=== PATIENT | female | born 1955 | race Caucasian/White ===

== ENCOUNTER 2018-11-21 19:41 | Inpatient (IN) ==
--- NOTE | 2018-11-21 22:12 | PROVIDER DOCUMENTATION ---
HPI-Rash/Wound/ReCheck - General Chief Complaint: Extremity Pain Stated Complaint: CELLULITIS Time Seen by Provider: 11/21/18 22:00 Source: patient - History of Present Illness-Dermatology Nature of Presenting Problem: 63 YOF PRESENTS WITH SWELLING, REDNESS, WARMTH TO BLE. SHE HAS RECENTLY TAKEN KEFLEX AND LEVAQUIN WITHOUT IMPROVEMENT. SHE DENIES FEVER, CHILLS, CP, SOB, N/V/D Location: reports: lower extremity Quality: reports: painful Severity: reports: moderate Onset/Duration: reports: unsure Timing: reports: still present Context/Associated Symptoms: reports: change in skin texture, swelling/mass/lumps Identifiable cause?: No Exposure: reports: unknown cause Similar Symptoms Previously?: Yes Recently seen or treated by another doctor?: Yes Review of Systems - Adult - REVIEW OF SYSTEMS - ADULT Constitutional: reports: no symptoms reported. denies: see HPI, chills, fever, fatique, night sweats, weight gain, weight loss, other Eyes: reports: no symptoms reported. denies: see HPI, discharge, dry eyes, decreased vision, blurred vision, double vision, eye pain, redness, other Ears, Nose, Mouth & Throat: reports: no symptoms reported. denies: see HPI, ear discharge, ear pain, hearing loss, tinnitus, epistaxis, sinus problem, nose pain, loose teeth, mouth/dental pain, mouth swelling, hoarseness, throat pain, throat swelling, other Cardiovascular: reports: edema. denies: no symptoms reported, see HPI, chest pain, heart murmur, irregular heart rate, orthopnea, palpitations, poor circulation, PND, syncope, other Respiratory: reports: other (CHRONIC HOME O2). denies: no symptoms reported, see HPI, chronic cough, cough, dyspnea on exertion, excessive sputum production, hemoptysis, pleurisy, shortness of breath, wheezing Gastrointestinal: reports: no symptoms reported. denies: see HPI, abdominal pain, hematemesis, constipation, diarrhea, difficulty swallowing, frequent heartburn, nausea, poor appetite, rectal bleeding, vomiting, other Genitourinary: reports: no symptoms reported. denies: see HPI, dysuria, discharge, frequency, flank pain, frequent UTI's, hematuria, hesitency, incontinence, urinary retention, urgency, other Musculoskeletal: reports: no symptoms reported. denies: see HPI, bone pain, back pain, frequent leg cramps, joint pain, joint swelling, muscle aches, muscle weakness, neck pain, other Integumentary: reports: skin sores/ulcer, skin thickening. denies: no symptoms reported, see HPI, hives, hair loss, itching, mole changes, nail changes, rash, other Neurological: reports: no symptoms reported. denies: see HPI, ataxia, dizziness /vertigo, headache/migraines, loss of balance, numbness, paresthesia, seizure, slurred speech, syncope, tremors, other Psychiatric: reports: no symptoms reported. denies: see HPI, anxiety, anti- depressant use, alcohol/drug dependence, depression, emotional problems, insomni a, panic attacks, suicidal thoughts, other Endocrine: reports: no symptoms reported. denies: see HPI, change in skin pigment, excessive sweating, goiter, cold intolerance, heat intolerance, increased hunger, increased thirst, polyuria, other Hematologic/Lymphatic: reports: no symptoms reported. denies: see HPI, blood clots, easy bruising, low blood count, lymphedema, prolonged bleeding, swollen lymph nodes, transfusions, other Allergic/Immunologic: reports: no symptoms reported. denies: see HPI, allergic reactions, allergic rhinitis, asthma, eczema, food allergy, frequent infections, hay fever, hives, positive PPD, urticaria, other Past History - Adult - PAST MEDICAL HISTORY-ADULT Review of Records: reports: Nursing Assessment Review, Social history reviewed & non-contributory. Physical Exam-General - PHYSICAL EXAM-ADULT Initial Vital Signs Reviewed: Yes - CONSTITUTIONAL General Appearance: appears well, alert, no apparent distress - EYES Eyes: PERRL/EOMI - HEAD, EARS, NOSE, MOUTH & THROAT HENMT: normocephalic/atraumatic, moist mucous membranes, normal ENT inspection - NECK Neck: non-tender, full range of motion, supple - RESPIRATORY Respiratory: chest non-tender, lungs clear, normal breath sounds, no pleuratic chest pain, no respiratory distress, no accessory muscle use, other (CHRONIC HOME O2) - CARDIOVASCULAR Cardiovascular: normal peripheral pulses, regular rate, rhythm. negative: no edema - GASTROINTESTINAL (ABDOMEN) Abdominal Exam: normal bowel sounds, non tender, soft - LYMPHATIC Lymphatic: no adenopathy - MUSCULOSKELETAL Back Exam: normal inspection, no CVA tenderness, no vertebral tenderness Extremity: inflammation, swelling, tenderness, other (REDNESS) Peripheral Pulses: dorsalis-pedis (R): 2+, dorsalis-pedis (L): 2+ - SKIN Integumentary: normal turgor, warm/dry, erythema, swelling, tenderness - NEUROLOGIC Neurologic: grossly normal - PSYCHIATRIC Psych/Mental Status: normal mood/affect, oriented x 3 Progress - PLAN OF CARE/RESULTS Progress/Plan/Lab Results: Vital Signs - 8 hr 11/21/18 19:46 Temperature 98.3 F Pulse Rate 65 Respiratory Rate 20 Blood Pressure 205/103 O2 Sat by Pulse Oximetry 87 L Orders Category Date Time Status CHEST-2 VIEWS [RAD] Stat Exams 11/21/18 22:07 Taken BASIC METABOLIC PANEL [CHEM] Stat Lab 11/21/18 22:06 Uncollected CBC WITH ELECTRONIC DIFF [HEME] Stat Lab 11/21/18 22:06 Uncollected PROTIME WITH INR [COAG] Stat Lab 11/21/18 22:06 Uncollected PTT [COAG] Stat Lab 11/21/18 22:06 Uncollected bnp [PRO B-NATRIURETIC PEPTIDE] Stat Lab 11/21/18 22:07 Uncollected Result Diagrams: 11/22/18 00:26 11/22/18 00:26 - CONSULTS/PCP/HOSPITALIST Notification #1 *Consult/PCP/Hospitalist*: Justin Time Discussed: 03:15 Consult Disposition: Will see in ED, Admit - CHANGE OF SHIFT REPORT (ED Provider) 1 Report Given and Care Transferred to:: DR MACEDO Time of Transfer: 23:58 Items Pending: Labs Departure - Departure Date of Disposition Decision: 11/22/18 Time of Disposition Decision: 02:15 DIAGNOSIS: Failure of outpatient treatment Lower extremity cellulitis Qualifiers: Laterality: unspecified laterality Qualified Code(s): L03.119 - Cellulitis of unspecified part of limb Disposition: ADMITTED INPATIENT 09 Certified Medical Emergency: Emergent Condition: Good Referrals and Follow-Ups: Neil Evans [Primary Care Provider] - - Critical Care Note This patient required my direct & personal management of CC.: No Attestation - Physician/ RBENT Attestation Patient care was provided by Advanced Practice Provider:: Yes Advanced Practice Provider documentation review:: The Mid-level provider documentation, treatment plan and medical decision making was reviewed by the physician who agrees with all treatment and medical decision making by the MLP. The physician spent face to face time with patient:: Yes Advanced Practice Provider documentation review:: Supervising physician onsite and consulted in the evaluation and care of this patient. The physician did have a face to face encounter with the patient.
[2018-11-22 00:53] LABS: BASO# 0.01 X1000 (0.0-0.2); BASO% 0.1 % (0.0-0.8); EOS# 0.14 X1000 (0.0-0.7); HEMATOCRIT 45.1 % (37.0-47.0); HEMOGLOBIN 14.3 g/dL (12.0-16.0); LYMPH# 1.43 X1000 (1.2-3.4); LYMPH% 20.3 % (20.5-51.1); MCH 30.2 PG (27-31); MCHC 31.7 g/dL (33-37); MCV 95.1 FL (81-99); MONO# 0.57 X1000 (0.11-0.59); MONO% 8.1 % (1.7-9.3); MPV 12.1 FL (7.4-10.4); NEUT# 4.88 X1000 (1.4-6.5); NEUT% 69.5 % (42.2-75.2); PLT 143 X1000 (130-400); RBC 4.74 XMIL (4.2-5.4); WBC 7.03 X1000 (4.8-10.8)
[2018-11-22 01:01] LABS: INR 1.07; PROTIME 14.8 Seconds (11.0-16.0)
[2018-11-22 01:02] LABS: PTT 28.1 Seconds (22.3-41.8)
[2018-11-22 01:19] LABS: AGAP 13; BUN 5 mg/dL (8-22); CALCIUM 9.1 mg/dL (8.8-10.2); CHLORIDE 91 mmol/L (98-107); COSMO 272; CREATININE 0.6 mg/dL (0.5-0.9); ESTIMATED GFR > 60; GLUCOSE 90 mg/dL (70-104); POTASSIUM 3.6 mmol/L (3.5-5.1); SODIUM 138 mmol/L (136-145); TCO2 34 mmol/L (25-35)
[2018-11-22] MEDS ORDERED: NORCO-5 PO ONE (02:11)
[2018-11-22] MEDS ORDERED: NORCO-5 ONE (02:15)
--- NOTE | 2018-11-22 07:24 | Diag Imaging Result Doc PS360 ---
EXAM: CHEST-2 VIEWS 11/21/2018 HISTORY: HYPOXIA TECHNIQUE: PA and lateral chest COMMENT: There is cardiomegaly and increased pulmonary vascularity. There is increased interstitial markings. IMPRESSION: Cardiomegaly and pulmonary edema. Electronically signed by Gildardo Montalvo 11/22/2018 7:21 AM
--- NOTE | 2018-11-22 07:49 | EKG Report ---
Test Performed on : 11/22/2018 07:32:10 AM Test Reason : SOB Blood Pressure : / mmHG Vent. Rate : 057 BPM Atrial Rate : 057 BPM P-R Int : 138 ms QRS Dur : 110 ms QT Int : 456 ms P-R-T Axes : 040 -81 035 degrees QTc Int : 443 ms Sinus bradycardia. with premature atrial complexes. with aberrant conduction. Left anterior fascicular block Cannot rule out Anterior infarct , age undetermined Abnormal ECG No previous ECGs available Confirmed by Unique PINTO, Shade Yap ([id number]) on 11/23/2018 11:59:37 AM
[2018-11-22 08:04] LABS: MAGNESIUM 1.5 mg/dL (1.5-2.7)
[2018-11-22 08:28] LABS: CK INDEX 2.4 (0.0-2.5); CK-MB 6.69 ng/mL (0.0-5.0)
[2018-11-22] MEDS ORDERED: ZOFRAN IV PRN (09:06)
[2018-11-22] MEDS ORDERED: TYLENOL PO PRN (09:08)
[2018-11-22] MEDS ORDERED: LOVENOX SUBQ SCH (09:15)
[2018-11-22] MEDS ORDERED: LASIX IV ONE (09:34)
[2018-11-22] MEDS ORDERED: LOPRESSOR PO SCH (09:45)
[2018-11-22] MEDS: DUONEB (A & A) INH SCH ×3 (09:54→21:15)
[2018-11-22] MEDS ORDERED: CLINDAMYCIN 600 MG/NS 600 MG/50 ML IVPB IV SCH (10:00)
[2018-11-22] MEDS ORDERED: CLINDAMYCIN 600 MG/D5W 600 MG/50 ML IVPB IV SCH (10:00)
[2018-11-22] MEDS ORDERED: NORCO-5 PO PRN ×2 (10:19→11:03)
[2018-11-22] MEDS: SYNTHROID PO SCH (10:29)
[2018-11-22] MEDS: CULTURELLE PO SCH (11:11)
--- NOTE | 2018-11-22 11:33 | HISTORY AND PHYSICAL ---
PRIMARY CARE PROVIDER: Neil Evans MD CHIEF COMPLAINT: Bilateral lower extremity pain and edema and shortness of breath. HISTORY OF PRESENT ILLNESS: Ms. Sullivan is a 63-year-old female with a past medical history most notable for COPD, hypertension, neuropathy, hypothyroidism, who has a history of having chronic lower extremity edema and cellulitis. I also would like to add that she does have COPD and does wear 2 L nasal cannula at home as needed. The patient states that she recently was given 2 different antibiotics for treatment of bilateral lower extremity cellulitis, with the last one being Keflex. She states that her legs have continued to have worsening swelling, warmth, erythema, pain, and tenderness. She does take Lasix 40 mg daily, which she states is for her swelling in her legs. Upon questioning, the patient denies any history of being told she has congestive heart failure. She states there might have been one time when she was in the hospital when she had a physician mention to her that she might have a little bit of heart failure going on, but the patient states since that time which was several years ago she has not had anyone tell her that she has the medical problem of heart failure. The patient does report to me that, when the swelling in her legs becomes worse, she does become short of breath as well. She states that these 2 symptoms coincided with each other in the past. She does report that she sleeps in a recliner at night as she is not able to lay flat to sleep. She does report dyspnea at rest and with exertion, which is worse at this time. She does report a chronic cough, but states this has not worsened. The patient has been a long-term smoker, though she denies any paroxysmal nocturnal dyspnea or any chest pain. Upon evaluation in the ER, the patient was not febrile. She did not report any fever, body aches, or chills, either. White blood cell count was within normal limits at 7030. Though her chemistry revealed a proBNP of 1850, she did have an elevated CK of 281, CK index was 2.4, CK-MB was 6.69, and troponin was less than 0.01. She was a little hypoxic upon arrival with an oxygen saturation of 87% room air, though this has improved with placing a nasal cannula with the last reading 92% nasal cannula at 2 L. Chest x-ray revealed cardiomegaly and pulmonary edema. She did have wheezing noted throughout bilateral full lung melissa and did have diminished lung sounds in the bases. EKG noted a sinus bradycardia with premature atrial complexes at a rate of 57. Given these findings, we will go ahead and admit the patient for further treatment and evaluation of her possible bilateral lower extremity cellulitis and possible new onset congestive heart failure. REVIEW OF SYSTEMS: A 14 point review of system was conducted with the patient and all were negative except for pertinent positives mentioned in the above HPI. PAST MEDICAL HISTORY: 1. Heart murmur. 2. COPD with home oxygen nasal cannula at 2 L as needed. 3. Hypertension. 4. Hypoglycemia. 5. Neuropathy. 6. Chronic problems with bilateral lower extremity swelling and cellulitis. 7. Hypothyroidism. PAST SURGICAL HISTORY: 1. Appendectomy. 2. Hysterectomy. 3. Bladder surgery x2. 4. Left hand surgery. SOCIAL HISTORY: The patient is a long-time smoker. She has smoked ever since she was 26 years old. She is currently down to half a pack of cigarettes per day. She denies any alcohol or illicit drug use social history. FAMILY HISTORY: 1. Her mother had a history of heart disease, though did from complications of a surgical procedure which, from the way the patient described it, may have been a cardiac catheterization. 2. Her father had a history of heart disease and from myocardial infarction. ALLERGIES: Patient reports allergies to: 1. Steroids. 2. Doxycycline. 3. Erythromycin Base. HOME MEDICATIONS: 1. ProAir HFA inhaler 2 puffs inhaled 4 times a day. 2. Furosemide 40 mg p.o. daily. 3. Gabapentin p.o. 4 times a day. 4. Ibuprofen 800 mg p.o. 4 times a day. 5. Combivent Respimat inhaler 1 puff inhaled t.i.d. 6. Levothyroxine 100 mcg p.o. daily. 7. Metoprolol 50 mg p.o. b.i.d. 8. Potassium chloride 20 mEq p.o. daily. DIAGNOSTIC STUDIES: White blood cell count 7030, hemoglobin 14.3, hematocrit 45.1, platelet count is 143. PTT 14.8, INR 1.07, PTT is 28.1. Sodium 138, potassium 3.6, chloride 90, serum bicarbonate is 34, BUN 5, creatinine 0.6, GFR greater than 60, glucose 92, calcium 9.1, magnesium 1.5. CK 281, CK index 2.4, CK-MB 6.69, troponin less than 0.01. ProBNP is 1850. EKG showed sinus bradycardia with PACs at a rate of 57 with a QTc of 443. Chest x-ray did show cardiomegaly and pulmonary edema. This is per Radiology. PHYSICAL EXAMINATION: VITAL SIGNS: Temperature 98 degrees, heart rate 65, respirations 18, blood pressure 160/68, oxygen saturation is 90% to 94% per nasal cannula at 2 L. GENERAL: Ms. Sullivan is a pleasant 63-year-old obese female. She was resting in the ER stretcher. She was in no acute distress. She was awake, alert, and able to answer questions appropriately. HEENT: Head is atraumatic, normocephalic. Pupils are equal, round, and reactive to light and were 3 mm bilaterally and brisk. Oral mucosa is moist. Oropharynx is clear. NECK: Supple. Trachea midline. The patient did have some slight JVD noted upon examination. CARDIOVASCULAR: Patient has S1, S2 present. There was a murmur noted. She does have irregular rhythm with a heart rate is in the 60s to 70s. PULMONARY: Patient has symmetrical chest expansion bilaterally. Lung sounds in bilateral full melissa did have wheezing noted, though she was diminished in the bilateral bases. ABDOMEN: Soft. Does not appear to be overtly distended, but the patient does have a protuberant abdomen noted. She was nontender upon palpation. Bowel sounds are present in all 4 quadrants and normoactive. EXTREMITIES: The patient does have swelling noted in bilateral lower extremities from her hips all the way down to her feet. In her lower extremities, this is approximately 3+ pitting edema. She does have erythema, warmth, pain, and tenderness noted to bilateral lower extremities from approximately knee down. She does have discoloration noted to bilateral feet. Her feet were warm to the touch. Capillary refill is delayed, though, at approximately 5 seconds, though she did have 2 to 3+ pulses in bilateral feet dorsalis pedis. She has bilateral radial pulses that are 3+ as well. INTEGUMENTARY: The patient's skin is pink, warm, and dry except for above-mentioned discoloration of the skin noted in the above Extremities exam. NEUROLOGICAL: The patient is alert and oriented to person, place, time, and situation. She is able to move all extremities. There do not appear to be any focal neurological deficits noted. ASSESSMENT AND PLAN: 1. Possible cellulitis of bilateral lower extremities. The patient is not febrile. She has no leukocytosis noted. She denies any fever, body aches, or chills, though she states that she does have frequent episodes of cellulitis of her bilateral lower extremities. She was recently on antibiotic with Keflex reportedly for this. Her bilateral lower extremities are, as mentioned, swollen, erythematous, hot to the touch. She does report pain and tenderness as well. We will continue with antibiotics of clindamycin 600 mg IV q.8 h. For further evaluation, we did also order venous Dopplers bilateral lower extremities as well to rule out any possible DVT. We will continue to follow. 2. Possible new onset congestive heart failure. The patient denies any previous history of heart failure in the past, though she has been having chronic swelling in her bilateral lower extremities, which she states when it worsens, she does have some worsening shortness of breath. She does have orthopnea. She sleeps in a recliner at night. Though she denies any paroxysmal nocturnal dyspnea or chest pain, she is having increased shortness of breath and is requiring continuous oxygen at this time. Given that she was hypoxic upon arrival with an oxygen saturation of 87%. A chest x-ray did show findings of cardiomegaly and pulmonary edema. Given this, we have ordered a series of cardiac enzymes and echocardiogram. We will give her a dose of IV Lasix 40 mg now, and we will continue her with 20 mg of IV Lasix q.12 h. to start this evening. We will await results of her echocardiogram and see how she responds to Lasix and await her cardiac enzyme results. We may consider a cardiology consult if needed. We will continue to follow this closely. She will be on continuous cardiac telemetry with frequent vital signs. 3. Hypertension. We will continue her metoprolol. We have put parameters on this for heart rate as well. 4. Chronic obstructive pulmonary disease. We will continue her supplemental oxygen by nasal cannula. We have ordered for her to have scheduled DuoNeb treatments q.6 h. 5. Hypothyroidism. We will continue her levothyroxine. We have placed a TSH as well. 6. Deep vein thrombosis prophylaxis will be provided with Lovenox 40 mg subcutaneously q.24 h. The patient placed was placed on the medical floor with telemetry. We will do daily weights, strict intake and output, incentive spirometry. She will be on a heart healthy diet. We will await cardiac enzymes as well as echocardiogram results and venous ultrasound results. Further orders and recommendations pending hospital course, diagnostics, [*]physician evaluation. Dictated by LINDSEY Baron for Enrike Anderson MD cc: Enrike Anderson MD
[2018-11-22 11:53] LABS: CK INDEX 2.6 (0.0-2.5); CK-MB 6.25 ng/mL (0.0-5.0)
[2018-11-22] MEDS: SEPTRA DS PO SCH ×2 (14:03→20:22)
[2018-11-22] MEDS: NEURONTIN PO SCH ×3 (14:03→20:22)
--- NOTE | 2018-11-22 16:01 | PROGRESS NOTE ---
DATE: 11/22/2018 SUBJECTIVE: Ms. Sullivan is a patient of Dr. Neil Evans. She is a 63-year-old female with a past medical history most notable for COPD, hypertension, neuropathy, hypothyroidism, had a history of having chronic lower extremity edema and cellulitis. She would like to add that she does have COPD and does wear 2 L of nasal cannula at home. She recently was given 2 different antibiotics to treat bilateral lower cellulitis with the last 1 being Keflex. Her legs have continued to have worsening swelling and warmth and erythema and pain and tenderness. She does take Lasix 40 mg a day for which she states is for her swelling in her legs. The patient denies any history of being told she has congestive heart failure. She states there might have been 1 time when she was in the hospital and her physician mentioned she had a little bit of heart failing going on, but the patient said that this episode was several years ago and has not had anyone tell her that she has a heart problem. The patient does report that when the swelling in her legs becomes worse she does become more short of breath. These symptoms coincide with each other. She reports she sleeps in a recliner at night, not able to lay flat. She reports she has dyspnea at rest and with exertion and it is worse at this time. On evaluation in the emergency room she was not febrile. Blood cell count was 7,000, though her chemistries were okay. ProBNP showed a level of 1,850, elevated CK of 281. Troponin was 0.01. She was a little hypoxic on arrival. Oxygen saturation was 87%, improved placing her on nasal cannula. Her last reading was 92% on 2 L. Her x-ray revealed cardiomegaly and pulmonary edema. She did have wheezing noted throughout bilateral full lung melissa and did have diminished lung sounds in the bases. EKG noted some sinus bradycardia, rate of 57. PAST MEDICAL HISTORY: 1. Heart murmur. 2. COPD, on oxygen, 2 L. 3. Hypertension. 4. Hypoglycemia. 5. Neuropathy. 6. Chronic problems with bilateral lower extremity swelling and cellulitis. 7. Hypothyroidism. PAST SURGICAL HISTORY: 1. Appendectomy. 2. Hysterectomy. 3. Bladder surgery x2. 4. Left hand surgery. ASSESSMENT AND PLAN: 1. She was admitted for possible cellulitis of bilateral lower extremities. She was not febrile. She does have pedal edema. There was no leukocytosis. She reports tenderness. They put her on clindamycin 600 mg IV q.8. She reports that she is allergic to mycins, so I am going to change her to Bactrim Double Strength 1 twice a day p.o. 2. Possible onset of congestive heart failure. I suspect she may have some cor pulmonale. I will to try and get an echocardiogram. We are going to diurese her with some Lasix and will probably give her 40 mg q.12. I think she was started on 20 mg q.12. We are going to attempt to get an echocardiogram. 3. Hypertension, which is controlled. Her blood pressures have been running a little bit high. We may have to adjust for her afterload. 4. Note, I am not sure she has true cellulitis. She is complaining a lot of pain and she is requesting IV pain medicine, opioid pain medicine. I am giving her some Maxatawny and I told her I do not want her to have too much pain medicine. She is getting Maxatawny 5 mg q.6 hours and she is not happy about this at all. She refused a venous study and so we have no venous study. I am going to stop her anticoagulant because she has some ecchymosis on her chest and her right breast where she said she fell and struck the commode. cc: Shade Calhoun MD
[2018-11-22 17:46] LABS: CK INDEX 2.5 (0.0-2.5); CK-MB 6.15 ng/mL (0.0-5.0)
[2018-11-22] MEDS: LASIX IV SCH (20:23)
[2018-11-22] MEDS: LOPRESSOR PO SCH (20:39)
[2018-11-22] MEDS ORDERED: LASIX IV SCH (21:00)
--- NOTE | 2018-11-22 23:41 | ECHO REPORT ---
ORDER DATE: 11/22/2018 MEASUREMENTS: Left atrium 4.8. Aortic root 3.1. SUMMARY: 1. Technically difficult study due to limited acoustic window quality. 2. Aortic valve not well imaged, but appears without evidence of structural abnormality and appears to open adequately on 2-dimensional images. Peak gradient across aortic valve is 20 mmHg with a mean gradient of 11 mmHg. Calculated aortic valve area by Doppler is 1.6 cm2. Very mild aortic valve stenosis suggested. Mitral and tricuspid valves are without evidence of structural abnormality while pulmonic valve is not well demonstrated. There is trace mitral regurgitation. Aortic root is normal in size. 3. Normal left ventricular chamber size with mild concentric left hypertrophy is demonstrated. Estimated left ejection fraction appears to be at least 65%. No regional wall motion abnormalities are evident. Left atrium is moderately enlarged. The right atrium and right ventricle are normal in size with grossly preserved right ventricular systolic function. 4. No pericardial effusion. 5. Inferior vena cava not well demonstrated. CONCLUSIONS: 1. Technically difficult study. 2. Aortic valve not well imaged, but Doppler suggests very mild aortic valve stenosis. 3. Mild concentric left hypertrophy with estimated ejection fraction at least 65%. 4. Moderate left atrial enlargement. cc: Mahendra William MD
[2018-11-23 02:25] LABS: CK INDEX 2.8 (0.0-2.5); CK-MB 5.77 ng/mL (0.0-5.0)
[2018-11-23] MEDS: DUONEB (A & A) INH SCH ×4 (03:27→21:30)
[2018-11-23] MEDS: SYNTHROID PO SCH (06:05)
[2018-11-23 08:07] LABS: EOS# 0.19 X1000 (0.0-0.7); HEMATOCRIT 42.9 % (37.0-47.0); HEMOGLOBIN 13.3 g/dL (12.0-16.0); LYMPH# 1.62 X1000 (1.2-3.4); LYMPH% 25.4 % (20.5-51.1); MCH 29.2 PG (27-31); MCV 94.3 FL (81-99); MONO# 0.57 X1000 (0.11-0.59); MONO% 8.9 % (1.7-9.3); MPV 11.3 FL (7.4-10.4); NEUT% 62.7 % (42.2-75.2); PLT 135 X1000 (130-400); RBC 4.55 XMIL (4.2-5.4); RDW 14.9 % (11.5-14.5); WBC 6.38 X1000 (4.8-10.8)
[2018-11-23 08:22] LABS: AGAP 11; ALB/GLOB RATIO 1.2; ALBUMIN 3.6 g/dL (3.5-5.0); ALKALINE PHOSPHATASE 61 U/L (32-104); BUN 8 mg/dL (8-22); CALCIUM 8.2 mg/dL (8.8-10.2); CHLORIDE 86 mmol/L (98-107); COSMO 267; CREATININE 0.7 mg/dL (0.5-0.9); ESTIMATED GFR > 60; GLUCOSE 104 mg/dL (70-104); GOT 21 U/L (10-30); GPT 12 U/L (10-36); POTASSIUM 2.8 mmol/L (3.5-5.1); SODIUM 134 mmol/L (136-145); TCO2 37 mmol/L (25-35); TOTAL BILIRUBIN 0.73 mg/dL (0.20-1.00); TOTAL PROTEIN 6.7 g/dL (6.3-8.3)
[2018-11-23] MEDS: CULTURELLE PO SCH (09:29)
[2018-11-23] MEDS: NEURONTIN PO SCH ×4 (09:29→21:25)
[2018-11-23] MEDS: SEPTRA DS PO SCH ×2 (09:29→21:27)
[2018-11-23] MEDS: LOPRESSOR PO SCH ×2 (09:29→21:26)
[2018-11-23] MEDS: LASIX IV SCH ×2 (09:30→21:25)
[2018-11-23] MEDS ORDERED: VENTOLIN HFA INH SCH (21:00)
--- NOTE | 2018-11-23 21:26 | PROGRESS NOTE ---
DATE: 11/23/2018 SUBJECTIVE: Ms. Sullivan feels like her feet are a little less swollen. She did have a little more wheezing so she requested her nebulized treatment. She remains afebrile. She has a lot of bruising on the right breast. It looks consistent with trauma and hematoma. OBJECTIVE: Vital signs: Temperature 98.3 degrees, pulse 62, respirations 17, blood pressure 138/56. HEENT: Pupils are equal. Neck: No distended neck veins. Lungs: Clear in all lung melissa at the present time. No wheezing. Cardiovascular: Regular rate without murmur or S3. Abdomen: Soft. Skin: Warm and dry. Extremities: She has 1+ edema in her ankles to calle. ASSESSMENT AND PLAN: 1. I think the redness and erythema in the lower extremities is much better, and her swelling is down. We are going to continue the Bactrim Double Strength p.o. 2. She appears to have chronic venous insufficiency and possible onset of congestive heart failure. We have located the echocardiogram with Doppler that was done and appeared to have concentric left ventricular hypertrophy, estimated ejection fraction of 65%, so she does not appear to have systolic dysfunction. She got 1 dose of Lasix, and she is getting 40 mg IV of Lasix twice a day. We will watch her renal function closely. Creatinine was 0.7 today. cc: Shade Calhoun MD
[2018-11-23] MEDS: KLOR-CON PO SCH (21:27)
[2018-11-24] MEDS: DUONEB (A & A) INH SCH ×4 (04:30→23:36)
[2018-11-24] MEDS: SYNTHROID PO SCH (06:38)
[2018-11-24 07:42] LABS: ESTIMATED GFR > 60
[2018-11-24 07:47] LABS: AGAP 12; BUN 9 mg/dL (8-22); CALCIUM 8.4 mg/dL (8.8-10.2); CHLORIDE 86 mmol/L (98-107); COSMO 269; CREATININE 0.8 mg/dL (0.5-0.9); GLUCOSE 105 mg/dL (70-104); POTASSIUM 2.9 mmol/L (3.5-5.1); SODIUM 135 mmol/L (136-145); TCO2 37 mmol/L (25-35)
[2018-11-24] MEDS: DUONEB (A & A) INH PRN ×2 (08:00→19:27)
[2018-11-24] MEDS: KLOR-CON PO SCH ×2 (08:27→22:05)
[2018-11-24] MEDS: SEPTRA DS PO SCH ×2 (08:28→22:05)
[2018-11-24] MEDS: LOPRESSOR PO SCH ×2 (08:28→22:00)
[2018-11-24] MEDS: CULTURELLE PO SCH (08:28)
[2018-11-24] MEDS: LASIX IV SCH ×2 (08:28→22:05)
[2018-11-24] MEDS: NEURONTIN PO SCH ×4 (08:28→22:04)
[2018-11-24] MEDS ORDERED: COMBIVENT RESPIMAT INHALER INH SCH (09:00)
--- NOTE | 2018-11-24 11:13 | PROGRESS NOTE ---
DATE: 11/24/2018 SUBJECTIVE: Ms. Sullivan is feeling better. She feels like her legs are less tense and they are less irritated and red. She still has a good amount of lymphedema throughout both legs. She remains afebrile. OBJECTIVE: Vital signs: Temperature 97.9 degrees, pulse 57, respirations 22. CVP less appears to be less than 6 cm. Lungs: Clear in all lung melissa. Cardiovascular: Regular rhythm and rate without murmur or S3. Abdomen: Soft. Skin: Warm and dry. ASSESSMENT AND PLAN: 1. Redness and erythema in lower extremities, much better. Does not appear she has an active infection. I am going to continue the Bactrim Double Strength 1 twice a day. 2. Chronic venous insufficiency. The Doppler has shown left ventricular hypertrophy, ejection fraction 65%, so suspects she has diastolic dysfunction. Continue the Lasix. 3. I really would like her to get the venous study and make sure there is no DVT in either leg, her left leg in particular. She refused to get it last time, so I think I will go up on her pain medicine. She is still very uncomfortable in that left leg, and see if that will help some. Otherwise, continue current medication. 4. History of hypothyroidism. Appears to be euthyroid. She is on Lopressor 50 mg b.i.d. We will continue Lasix 40 mg IV q.12, the Neurontin 800 mg 4 times a day. cc: Shade Calhoun MD
[2018-11-25] MEDS: NORCO-10 PO PRN ×3 (00:27→13:55)
[2018-11-25] MEDS: DUONEB (A & A) INH SCH ×3 (03:45→15:00)
[2018-11-25] MEDS: SYNTHROID PO SCH (06:29)
[2018-11-25] MEDS: NEURONTIN PO SCH ×3 (08:38→17:31)
[2018-11-25] MEDS: CULTURELLE PO SCH (08:38)
[2018-11-25] MEDS: SEPTRA DS PO SCH (08:38)
[2018-11-25] MEDS: KLOR-CON PO SCH (08:38)
[2018-11-25] MEDS: LOPRESSOR PO SCH (08:38)
[2018-11-25] MEDS: LASIX IV SCH (08:38)
[2018-11-25 13:17] VITALS: BP 147/67
--- NOTE | 2018-11-25 13:24 | PROGRESS NOTE ---
DATE: 11/25/2018 SUBJECTIVE: She is doing better, but her leg does not hurt as bad as it did. The swelling has definitely gone down. Breathing comfortably, but not ready to go home. She still has not agreed to let us do a venous Doppler study. I would really like to make sure she does not have a DVT and especially in that left leg. OBJECTIVE: Temperature 98.9 degrees, pulse 70, respirations 18, blood pressure 145/67. Pupils are equal and round. Lungs are clear in all lung melissa. Cardiovascular: Regular rhythm and rate without murmur or S3. She has got pedal edema both legs. The left seems to be a little bigger than the right with lymphedema. ASSESSMENT AND PLAN: 1. Redness and erythema, lower extremities. Presented with some cellulitis and that is better. She is on Bactrim Double Strength 1 twice a day. 2. Chronic venous insufficiency. She has a normal left ventricular function and I suspect diastolic dysfunction, a combination of obesity and chronic venous insufficiency. 3. Would like to get a venous study. She says maybe she will agree to it tomorrow. Has agreed to stay in the hospital. Continue present therapy. 4. History of hypothyroidism. Appears euthyroid at the present time. 5. Obesity and chronic venous insufficiency. Right now we are getting Lasix 40 mg q.12 h. Her blood count, CBC from the 7th looked good. Electrolytes look good from the 8th. cc: MD GAL Chaves
--- NOTE | 2018-11-25 19:56 | DISCHARGE SUMMARY ---
ADMISSION DATE: 11/22/2018 DISCHARGE DATE: 11/25/2018 HISTORY OF PRESENT ILLNESS: Ms. Sullivan is a patient of Dr. Ty Evans. This is a 63-year-old who came in with bilateral lower extremity pain, edema and shortness of breath. Has a past medical history notable for COPD, hypertension, neuropathy, hypothyroidism, history of having chronic lower extremity edema and cellulitis and she does have COPD. She is on 2 L nasal cannula at home, chronic hypoxemia, recently given 2 different antibiotics for bilateral lower extremity cellulitis including Keflex. Continued to have worsening swelling and erythema and tenderness, especially in her left calf. She takes Lasix 40 mg a day for swelling in the legs. The patient denies any history of being told she had congestive heart failure. There might have been a time when she was in the hospital and the physician may have mentioned heart failure, but she has not known about it. When I look at her echocardiogram, she has good left ventricular function. In fact, ejection fraction is 80%, so hyperdynamic ventricle. Suspect some diastolic dysfunction. PAST MEDICAL HISTORY: 1. Heart murmur. 2. COPD on oxygen per nasal cannula 2 L/minute. 3. Hypertension. 4. Hypoglycemia. 5. Neuropathy. 6. Chronic problems with lower extremity swelling and cellulitis. 7. Hypothyroidism. PAST SURGICAL HISTORY: 1. Appendectomy. 2. Hysterectomy. 3. Bladder surgery x2. 4. Left hand surgery. ADMISSION DIAGNOSIS: 1. Possible cellulitis bilateral lower extremities. Looked more like lymphedema. She did have some bullae and chronic venous stasis discoloration, pigmentation on both lower extremities and so we did put her on clindamycin, but she said she is allergic to mycins. I would switch her to p.o. Bactrim double strength 1 twice a day. The erythema seemed to resolve. We did increase the diuresis. 2. She has chronic venous insufficiency compound by obesity and hyperdynamic ventricle or diastolic dysfunction. We did diurese her some. Renal function stayed pretty steady. 3. Hypertension. Blood pressures remained well controlled. 4. Chronic obstructive pulmonary disease and she is on oxygen. Chronic hypoxemia. 5. Hypothyroidism. We checked her T4, TSH, and they were normal. 6. We had her on thrombosis prophylaxis. She had fallen and she had a hematoma in her right breast. She refused anticoagulation and she refused to get venous studies on her legs. I tried multiple times to get to make sure she did have a deep vein thrombosis. Her swelling did improve and she complained of the pain. She stated the pain is improved and she insisted on going home on 11/25/2018. Once again, tried to talk her into getting noninvasive studies. I was concerned about possibility of deep vein thrombosis in her legs and she refused any further studies. Echocardiogram was done on 11/22, technically difficult study: Mild concentric left ventricular hypertrophy. Ejection fraction at this time was 65%. Moderate left atrial enlargement. DISPOSITION: So, I am going to discharge her home at her insistence and I will go back on her home medications. HOME MEDICATIONS: She was taking Lasix 40 mg a day. She is taking the gabapentin 800 mg 4 times a day. She is taking ibuprofen 4 times a day. I encouraged her to decrease that, if not stop it. She is on a Respimat inhaler, Synthroid 100 mcg daily, Lopressor 50 mg twice a day, and her Lasix 20 mg a day. She wanted me to give her some pain medicine to go home the 1st 24 hours in particular, she was very insistent that she could get her pain medicine, but I will stop the Bactrim Double Strength. In regards to pain medicine, she was getting [place] 10s. I will give her 20 of them. She is to follow up with her primary care physician. I want her to elevate her feet. We had discussions about treatment of chronic venous insufficiency. The importance of weight loss, importance of elevating her feet, stockings and once again tried to convince her to get a venous study to make sure there was not any venous thrombosis, which she refused. I expect the hematoma in the right breast should resolve. It continues to look a little better. cc: Shade Calhoun MD
== END 2018-11-25 20:13 | disposition home or self-care (01) | DRG 603 ==
LOC: ED 19:41 → 3N 11-22 06:18 → SUATTDRO 11-22 06:18
PROVIDERS: ATTEND Emergency Medicine
CPT/HCPCS: 71020; 71046; 80048; 80053; 82550; 82553; 83735; 83880; 84443; 84484; 85025; 85610; 85730; 93005; 93010; 93306; 93970; 94640; 94761; 94799; 99285; A9270; J1940; S0077

== ENCOUNTER 2018-11-30 21:54 | Inpatient (IN) ==
[2018-11-30] MEDS ORDERED: DILAUDID IV ONE (22:51)
[2018-11-30] MEDS ORDERED: ZOFRAN IV ONE (23:00)
[2018-12-01 00:39] LABS: BASO# 0.01 X1000 (0.0-0.2); BASO% 0.1 % (0.0-0.8); EOS# 0.04 X1000 (0.0-0.7); EOS% 0.4 % (0.0-10.0); HEMATOCRIT 44.1 % (37.0-47.0); HEMOGLOBIN 13.9 g/dL (12.0-16.0); LYMPH# 0.81 X1000 (1.2-3.4); LYMPH% 8.5 % (20.5-51.1); MCHC 31.5 g/dL (33-37); MONO# 0.68 X1000 (0.11-0.59); MONO% 7.2 % (1.7-9.3); MPV 12.6 FL (7.4-10.4); NEUT# 7.95 X1000 (1.4-6.5); NEUT% 83.8 % (42.2-75.2); PLT 135 X1000 (130-400); RBC 4.64 XMIL (4.2-5.4); RDW 14.6 % (11.5-14.5); WBC 9.49 X1000 (4.8-10.8)
[2018-12-01 00:40] LABS: INR 1.01; PROTIME 14.1 Seconds (11.0-16.0); PTT 28.9 Seconds (22.3-41.8)
[2018-12-01] MEDS ORDERED: DUONEB (A & A) INH ONE (00:47)
[2018-12-01 00:53] LABS: AGAP 8; BUN 8 mg/dL (8-22); CALCIUM 8.6 mg/dL (8.8-10.2); CHLORIDE 96 mmol/L (98-107); COSMO 277; CREATININE 0.6 mg/dL (0.5-0.9); ESTIMATED GFR > 60; GLUCOSE 153 mg/dL (70-104); POTASSIUM 4.3 mmol/L (3.5-5.1); SODIUM 138 mmol/L (136-145); TCO2 34 mmol/L (25-35)
--- NOTE | 2018-12-01 02:46 | PROVIDER DOCUMENTATION ---
This chart was entered by Argentina Pathak Scribe, acting as scribe for Pramod Delgado MD. HPI-Musculoskeletal Pain/Inj - GENERAL Chief Complaint: Extremity Injury Stated Complaint: fall Time Seen by Provider: 11/30/18 22:13 Source: patient - HX OF PRESENT ILLNESS-MUSKULOSKELTAL Nature of Presenting Problem: Pt is 63/F presenting to ED after falling on L knee at home. Pt sts that the kn ee popped and that she cannot put any weight on that leg at all. Pt has hx of cellulitus to that leg. Quality of Pain: reports: aching Severity in ED: mild Onset/Duration: just prior to arrival Timing: still present Modifying Factors: improves with: nothing Any recent injury?: Yes Locality of Occurance: Home Similar Symptoms Previously?: No Recently seen or treated by another doctor?: No - FALL INJURY Location of Pain/Injury: reports: lower extremity (L knee) Pain Radiation: reports: no radiation Reason for Fall: reports: unknown Symptoms prior to fall:: reports: none Loss of Consciousness: no loss of consciousness Injury Associated Symptoms: reports: denies symptoms, arm pain, back/neck pain Review of Systems - Adult - REVIEW OF SYSTEMS - ADULT Constitutional: reports: no symptoms reported. denies: chills, fever Eyes: reports: no symptoms reported Ears, Nose, Mouth & Throat: reports: no symptoms reported Cardiovascular: reports: no symptoms reported. denies: chest pain Respiratory: reports: no symptoms reported Gastrointestinal: reports: no symptoms reported. denies: abdominal pain, nausea, vomiting Genitourinary: reports: no symptoms reported Musculoskeletal: reports: no symptoms reported. denies: bone pain Integumentary: reports: no symptoms reported Neurological: reports: no symptoms reported. denies: dizziness/vertigo, headache/migraines Psychiatric: reports: no symptoms reported Endocrine: reports: no symptoms reported Hematologic/Lymphatic: reports: no symptoms reported Allergic/Immunologic: reports: no symptoms reported All Other Systems: Reviewed and Negative Past History - Adult - PAST MEDICAL HISTORY-ADULT Review of Records: reports: Old Records Reviewed, Nursing Assessment Review, Medications Reviewed, Social history reviewed & non-contributory. Cardiovascular: reports: HTN Respiratory: reports: COPD Genitourinary: reports: denies history Musculoskeletal: reports: denies history Neurological: reports: denies history Psychiatric: reports: denies history Endocrine/Immune: reports: denies history Other Conditions: reports: denies history - SOCIAL HISTORY Smoking: cigarettes Provider spent 3-5 mins advising pt. on dangers of tobacco.: Discussed manners to quit use, and f/u contacts for add'l counseling. Substance Use: none/never Alcohol Use Frequency: sober (former use) Living Situation: family Physical Exam-Injury Related - Physical Exam-Injury Related Initial Vital Signs Reviewed: Yes General Appearance: appears well, alert, no apparent distress, obese (morbidly obese) Eyes: PERRL/EOMI, pink conjunctivae Head, Ears, Nose, Mouth & Throat: normocephalic/atraumatic, moist mucous membranes, normal ENT inspection, TMs normal, pharynx normal Neck: non-tender, full range of motion, supple, normal inspection Respiratory: lungs clear Cardiovascular: regular rate, rhythm Abdominal Exam: normal bowel sounds, non tender, soft Extremity: normal range of motion, non-tender, normal gait, normal inspection Integumentary: normal color, warm/dry Neurologic: grossly normal - Glascow Coma Score Best Eye Response ([place]): (4) open spontaneously Best Verbal Response ([place]): (5) oriented Best Motor Response ([place]): (6) obeys commands [place]agan Total: 15 Progress - PLAN OF CARE/RESULTS Progress/Plan/Lab Results: Vital Signs - 8 hr 11/30/18 22:21 11/30/18 22:26 11/30/18 22:32 Temperature 98.7 F Pulse Rate 69 Respiratory Rate 20 Blood Pressure 186/65 186/65 168/98 O2 Sat by Pulse Oximetry 93 L 92 L 93 L 11/30/18 23:00 11/30/18 23:03 11/30/18 23:32 Temperature Pulse Rate Respiratory Rate Blood Pressure 172/52 170/67 O2 Sat by Pulse Oximetry 97 96 92 L 12/01/18 00:02 12/01/18 00:32 12/01/18 01:02 Temperature Pulse Rate Respiratory Rate Blood Pressure 167/76 190/72 136/54 O2 Sat by Pulse Oximetry 94 L 95 99 12/01/18 01:05 12/01/18 01:32 Temperature Pulse Rate 80 Respiratory Rate 16 Blood Pressure 164/60 O2 Sat by Pulse Oximetry 97 Laboratory Results - last 24 hr 06/11/30/18 11/30/18 23:15 23:15 23:15 WBC 9.49 RBC 4.64 Hgb 13.9 Hct 44.1 MCV 95.0 MCH 30.0 MCHC 31.5 L RDW Std Deviation 14.6 H Plt Count 135 MPV 12.6 H Neut % (Auto) 83.8 H Lymph % (Auto) 8.5 L [place] % (Auto) 7.2 Eos % (Auto) 0.4 Baso % (Auto) 0.1 Neut # (Auto) 7.95 H Lymph # (Auto) 0.81 L [place] # (Auto) 0.68 H Eos # (Auto) 0.04 Baso # (Auto) 0.01 PT 14.1 INR 1.01 PTT (Actin FS) 28.9 Sodium 138 Potassium 4.3 Chloride 96 L Carbon Dioxide 34 Anion Gap 8 BUN 8 Creatinine 0.6 Estimated GFR/1.73 m2 > 60 BUN/Creatinine Ratio 13 Glucose 153 H Calculated Osmolality 277 Calcium 8.6 L Orders Category Date Time Status Nursing- Obtain EKG once Care 11/30/18 23:01 Active CHEST-PORTABLE [RAD] Stat Exams 12/01/18 00:48 Taken KNEE 3 VIEWS LEFT [RAD] Stat Exams 11/30/18 22:19 Taken BMP [BASIC METABOLIC PANEL] [CHEM] Stat Lab 11/30/18 23:15 Completed CBC WITH ELECTRONIC DIFF [HEME] Stat Lab 11/30/18 23:15 Completed PROTIME WITH INR [COAG] Stat Lab 11/30/18 23:15 Completed PTT [COAG] Stat Lab 11/30/18 23:15 Completed Albuterol 2.5MG/Ipratrop 0.5MG [Duoneb (A & A)] Med 12/01/18 00:47 Discontinued 3 ml INH NOW ONE Hydromorphone [Dilaudid] Med 11/30/18 22:51 Discontinued 0.5 mg IV NOW ONE Ondansetron [Zofran] Med 11/30/18 23:00 Discontinued 4 mg IV NOW ONE Aerosol Treatments Routine Oth 12/01/18 00:47 Completed Aerosol Treatments Stat Oth 12/01/18 00:47 Completed Transfer/Admit Order [TRANSFER] Routine Transfer 12/01/18 00:58 Ordered Result Diagrams: 11/30/18 23:15 11/30/18 23:15 - CONSULTS/PCP/HOSPITALIST Notification #1 *Consult/PCP/Hospitalist*: [place] Time Discussed: 23:05 Consult Disposition: other (will review X=ray and call back) #2 Consult: Justin Time Discussed: 23:15 (pt accepted ) Consult Disposition: Admit Departure - Departure Date of Disposition Decision: 12/01/18 Time of Disposition Decision: 00:00 DIAGNOSIS: Femoral distal fracture Disposition: ADMITTED INPATIENT 09 Certified Medical Emergency: Emergent Condition: Serious - Critical Care Note This patient required my direct & personal management of CC.: No Attestation - Physician/ BRENT Attestation Patient care was provided by Advanced Practice Provider:: No The physician spent face to face time with patient:: Yes Advanced Practice Provider documentation review:: Supervising physician onsite and consulted in the evaluation and care of this patient. The physician did have a face to face encounter with the patient. This chart was documented by the indicated scribe, (Argentina Pathak, Scribe) and accurately reflects the services I performed and decisions made by me, Pramod Sharp MD, as attested by the provider's signature.
[2018-12-01] MEDS: DILAUDID IV PRN ×4 (02:58→12:30)
[2018-12-01] MEDS ORDERED: DILAUDID ONE (02:58)
[2018-12-01] MEDS ORDERED: TYLENOL PO PRN (04:05)
[2018-12-01] MEDS ORDERED: ZOFRAN IV PRN (04:05)
[2018-12-01] MEDS ORDERED: SYNTHROID PO SCH (07:00)
--- NOTE | 2018-12-01 07:39 | Diag Imaging Result Doc PS360 ---
EXAM: KNEE 3 VIEWS LEFT HISTORY: pain TECHNIQUE: Left knee, three views COMPARISON: None. FINDINGS: There is an oblique fracture through the distal femoral shaft extending through the femoral condyles. Mild displacement. There are long-standing arthritic changes with joint space narrowing and bone spurring. No fracture to the proximal tibia or fibula. IMPRESSION: Fractures to the distal femur. Electronically signed by Jp Goncalves 12/01/2018 7:37 AM
[2018-12-01] MEDS: DUONEB (A & A) INH SCH ×2 (07:41→11:35)
--- NOTE | 2018-12-01 07:44 | Diag Imaging Result Doc PS360 ---
EXAM: CHEST-PORTABLE HISTORY: dyspnea TECHNIQUE: Chest single view COMPARISON: 11/21/2018 FINDINGS: Poor inspiratory effort. The heart is mildly prominent and there is pulmonary edema. No consolidation. No pleural effusions identified. IMPRESSION: Cardiomegaly with pulmonary edema. Electronically signed by Jp Goncalves 12/01/2018 7:41 AM
--- NOTE | 2018-12-01 07:53 | Diag Imaging Result Doc PS360 ---
EXAM: KNEE 3 VIEWS RIGHT HISTORY: Right Knee Pain/Injury/Fall TECHNIQUE: Right knee, three views COMPARISON: None. FINDINGS: No fracture. No dislocation. Medial joint space narrowing. There is bone spurring to the femoral condyles and tibial plateau. There is also patellofemoral joint space narrowing with patella bone spurs. IMPRESSION: No acute bony injury. Long-standing arthritis. Electronically signed by Jp Goncalves 12/01/2018 7:51 AM
--- NOTE | 2018-12-01 08:29 | ORTHOPAEDICS CONSULTATION ---
DATE: 12/01/2018 HISTORY OF PRESENT ILLNESS: Patient is a 63-year-old female status post fall at home yesterday evening. She felt a pop and was unable to bear weight. She denies loss of conscious. The patient has been recently discharged from the hospital mom with bilateral lower extremity pain, edema and shortness of breath. She was in the emergency room, and x-rays revealed a right distal femur fracture. She was admitted to the hospital, and orthopedic consultation was requested. HOME MEDICATIONS: Reviewed and contained within the chart. ALLERGIES: Steroids, doxycycline, erythromycin. PAST MEDICAL HISTORY: COPD with home oxygen, hypertension, heart murmur, hypoglycemia, neuropathy, chronic problems with bilateral extremity swelling and cellulitis, hypothyroidism. PAST SURGICAL HISTORY: Appendectomy, hysterectomy, bladder surgery x2, left hand surgery. PHYSICAL EXAMINATION: Patient is awake, alert, and cooperative with exam. Her left lower extremity knee immobilizer is in place. She does have diffuse swelling about the knee, diffuse tenderness to palpation. Compartments are soft. She does have some chronic skin discoloration from mid tibia and distally bilaterally. There is no increased warmth or erythema. There is no evidence of streaking proximally. Significant pain and discomfort with gentle movement. IMAGING: X-rays were obtained and revealed a right displaced medial femoral condyle fracture with extension proximally on the distal femur and some longstanding arthritis. IMPRESSION: Right distal femur fracture. PLAN: At this point, I have discussed treatment options with the patient. After reviewing the films and discussing with the patient, I feel that the patient would benefit from transfer to [facility] to have definitive surgical management per Dr. Hobbs who is a traumatologist. I have discussed with him. We will make arrangements for transfer. cc: Kodi Harmon MD
[2018-12-01] MEDS ORDERED: LASIX PO SCH (09:00)
[2018-12-01] MEDS ORDERED: LOPRESSOR PO SCH (09:00)
[2018-12-01] MEDS ORDERED: LASIX IV ONE (09:56)
[2018-12-01] MEDS: NEURONTIN PO SCH ×2 (10:00→13:07)
[2018-12-01 11:22] VITALS: BP 177/58
--- NOTE | 2018-12-01 11:41 | HISTORY AND PHYSICAL ---
PRIMARY CARE PROVIDER: Neil Evans MD. DATE AND TIME: 12/01/2018 at 0130. CHIEF COMPLAINT: Fall with left knee pain. HISTORY OF PRESENT ILLNESS: Ms. Sullivan is a 63-year-old female who was just recently discharged from our facility on 11/25/2018 for which she underwent treatment of possible cellulitis and chronic bilateral lower extremity swelling. She did receive antibiotic of Bactrim, they also did diurese her some as well. It was noted as well they did want to perform venous Dopplers of bilateral lower extremities for further evaluation of her swelling to rule out possible DVT though the patient did refuse this study even after being explained the reason for the study and its importance. The patient's swelling did improve with diuresis as well as she reports improved pain. She ultimately refused the bilateral venous Doppler studies and did want to be discharged home. Prior to presenting to the ER, the patient states that she was going up a step and she stepping up with her right leg and had most of her weight resting on her left leg as it was straightened out, though she states her left leg gave way causing her to fall hitting her left knee and right knee. The patient reports pain in both knees though most of her pain is in the left knee and she was unable to bear weight, and does have pain with movement of her left lower extremity. The patient denies any other injuries during her fall other than the pain noted in bilateral knees. She denied hitting her head. She denied any loss of consciousness. Also she states that simply felt her leg give way. She denied any dizziness, lightheadedness, chest pain, shortness of breath or weakness prior to her fall. In the ER they did perform x-rays of right and left knee. Her left knee did show an oblique fracture through the distal femoral shaft extending through the femoral condyles, there was some mild displacement noted. Right knee showed no acute injury, there was some longstanding arthritis noted. Dr. Harmon with Orthopedic Surgery was notified by the ER physician of the patient, and a consult will be placed for him to see her in the morning. We have placed a left knee immobilizer on the patient at this time. Other than her pain as reported above in bilateral knees she denies any headache, dizziness, lightheadedness, chest pain, shortness of breath or worsening cough. The patient is a smoker and does keep a chronic cough. She denies any abdominal pain, nausea, vomiting or diarrhea. She denies any hematochezia or melena. She denies any dysuria or urinary frequency. She does have chronic swelling noted to bilateral lower extremities. She states that this is somewhat better than it was during her most recent admission. REVIEW OF SYSTEMS: A 14-point review of systems was conducted with the patient and all were negative except for pertinent positives mentioned in the above HPI. PAST MEDICAL HISTORY: 1. Heart murmur. 2. COPD on home oxygen per nasal cannula at 2 L. 3. Hypertension. 4. Hypoglycemia. 5. Neuropathy. 6. Chronic problems with lower extremity swelling and cellulitis. 7. Hypothyroidism. PAST SURGICAL HISTORY: 1. Appendectomy. 2. Hysterectomy. 3. Bladder surgery x2. 4. Left hand surgery. SOCIAL HISTORY: The patient is a long-time smoker. She has smoked since she was 26 years old. She currently smokes a half a pack of cigarettes per day. She denies any alcohol or illicit drug use. FAMILY HISTORY: 1. Her mother has a history of heart disease, though reports that she did pass away secondary to complications of a surgical procedure from what may have been a cardiac catheterization per the patient's description. 2. Her father had a history of heart disease and from a myocardial infarction. ALLERGIES: The patient reports allergies to steroids, doxycycline and erythromycin base. HOME MEDICATIONS: 1. ProAir HFA inhaler 2 puffs inhaled 4 times a day. 2. Furosemide 40 mg p.o. daily. 3. Gabapentin 800 mg p.o. 4 times a day. 4. Dudley 10 one p.o. q.6 hours p.r.n. for pain. 5. Ibuprofen 800 mg p.o. 4 times a day. 6. Combivent Respimat inhaler 1 puff inhaled t.i.d. 7. Synthroid 100 mcg p.o. daily. 8. Lopressor 50 mg p.o. b.i.d. 9. Potassium chloride 20 mEq p.o. daily. 10. Belsomra 20 mg p.o. daily at bedtime as needed. DIAGNOSTIC DATA/LABORATORY RESULTS: 1. White blood cell count is 9490, hemoglobin 13.9, hematocrit 44.1, platelet count is 135,000. PT is 14.1, INR 1.01, PTT is 28.9. Sodium 138, potassium 4.3, chloride 96, serum bicarbonate is 34, BUN 8, creatinine 0.6. GFR greater than 60, glucose 153, calcium 8.6. 2. EKG showed normal sinus rhythm with an incomplete right bundle branch block at a rate of 68, with a QTc of 427. 3. Right knee x-ray showed no acute abnormality. No acute bony injury, though longstanding arthritis. Left knee x-ray showed a complete fracture through the distal femoral shaft extending through the femoral condyle. There was mild displacement noted. 4. Chest x-ray showed cardiomegaly with pulmonary edema. It did look similar to her previous chest x-ray. PHYSICAL EXAMINATION: VITAL SIGNS: Temperature 98.7 degrees, heart rate 88, respirations 16, blood pressure is 148/61, oxygen saturation is 97% on nasal cannula at 2 L. GENERAL: Ms. Sullivan is a 63-year-old obese female. She was resting in the ER stretcher. She is in no acute distress. She was awake, alert and able to answer questions appropriately. HEENT: Head is atraumatic and normocephalic. Pupils are equal, round and reactive to light, were 3 mm bilaterally and brisk. Oral mucosa is moist. Oropharynx is clear. NECK: Supple. Trachea midline. CARDIOVASCULAR: The patient has S1 and S2 present. No murmurs, gallops or rubs appreciated. Regular rate and rhythm. PULMONARY: The patient has symmetrical chest expansion bilaterally. Lung sounds in bilateral upper melissa did have wheezing noted, though she was diminished in bilateral bases. ABDOMEN: Soft and nontender, The patient does have a protuberant abdomen noted. Bowel sounds were present in all 4 quadrants, were normoactive. EXTREMITIES: No cyanosis noted. The patient does have edema noted in bilateral lower extremities. Radial and pedal pulses were 2+ bilaterally. The patient does have some worsened swelling noted to her left knee. She also does have some ecchymosis noted to her right knee as well. She reports some pain with manipulation of her right knee. The patient at this time does report pain with just slight movement of her left knee. INTEGUMENTARY: The patient's skin is pink, warm and dry.Neurologic: The patient is alert and oriented to person, place, time and situation. She is able to move all extremities. There were no focal neurological deficits noted. ASSESSMENT AND PLAN: 1. Left distal femur fracture. For treatment of this we have placed the patient in a left knee immobilizer. She will be on strict bedrest. She will be nothing per oral. We have provided pain medication for as needed pain medication. We have placed a consult with Dr. Harmon of Orthopedic Surgery and we will await his evaluation and further recommendations for management. 2. Mechanical fall from a standing position. The patient states that her left leg did give way when she was attempting to walk up some steps. 3. Chronic obstructive pulmonary disease. We will continue the patient's oxygen supplementation with nasal cannula at 2 L. We have placed an every 4-hour DuoNeb treatments. 4. Hypertension. We will continue the patient's metoprolol. 5. Chronic bilateral lower extremity swelling. We will continue the patient's Lasix. We have discussed with the patient about her needing to receive the venous Dopplers that she had refused during her previous admission to rule out possible deep venous thrombosis. The patient was concerned about pain related to the procedure. She is receiving pain medication at this time for her fracture. I discussed the importance of ruling out possible deep venous thrombosis prior to any type of surgical procedure. We will go ahead and order this study and await the results. 6. Deep vein thrombosis prophylaxis. At this time we will hold any anticoagulants until she is evaluated by Orthopedic Surgery. We will also hold any sequential compression devices given that we are going to order venous Dopplers to rule out possibility of deep venous thrombosis due to her bilateral lower extremity swelling. We will await orthopedic evaluation and results of the study, and we will make a decision on further venous thromboembolic prophylaxis after we have received both of these. She has been placed on a surgical floor with telemetry. She will have vital signs every 4 hours. Do strict intake and output. Further orders and recommendations pending the hospital course, diagnostic studies and physician evaluation. Dictated by LINDSEY Baron for Enrike Anderson MD cc: Enrike Anderson MD [facility]
--- NOTE | 2018-12-01 19:20 | DISCHARGE SUMMARY ---
ADMISSION DATE: 12/01/2018 DISCHARGE DATE: 12/01/2018 DISPOSITION: Is [facility]. ACCEPTING PHYSICIANS: 1. Dr. Hobbs for orthopedics. 2. Dr. Garcia for the hospitalist services. CONSULTATION: Orthopedics was consulted. Patient was seen by Dr. Harmon. IMAGING STUDIES OF SIGNIFICANCE: An x-ray of the left knee show fractures to the distal femur. A chest x-ray showed cardiomegaly with pulmonary edema. A right knee x-ray was unremarkable. ASSESSMENT AT DISCHARGE: 1. A left distal femur fracture. 2. History of chronic obstructive pulmonary disease with mild bronchospasm. 3. Congestive heart failure with preserved ejection fraction, predominantly right heart failure (cor pulmonale). 4. Hypothyroidism. 5. Insomnia. PRESENTING COMPLAINT: Fall. HISTORY OF PRESENTING COMPLAINT: Ms. Sullivan is a 63-year-old female who was just recently discharged from the hospital because of bilateral lower extremity erythematous changes. She was treated for cellulitis and sent home. Apparently at home she sustained a mechanical fall and hit the left knee so she was brought back to the emergency department where she was evaluated and x- rays were done. The patient was found to have a left distal femur fracture. She was admitted for Orthopedics to evaluate her. This morning Dr. Harmon has seen the patient and he thinks that the patient's fractures cannot be taken care of over here so he has already made arrangements for Dr. Hobbs in [place] to see her. Dr. Harmon personally called me and notified me about his discussions with Dr. Hobbs. Ms. Sullivan also has other medical comorbidities so I have reached out to Dr. Garcia on the hospitalist services and he has accepted Ms. Sullivan on the hospital services so that once the patient is there then Dr. Hobbs will take care of the fractures. This has also been explained to the patient. Ms Sullivan will therefore be transferred to [facility] for higher level of care. TIME SPENT: 35 minutes. cc: MD Dr. Vera [address] [place] Dr. Hobbs
[2018-12-02] MEDS ORDERED: SYNTHROID PO SCH (07:00)
[2018-12-02] MEDS ORDERED: LASIX IV SCH (09:00)
--- NOTE | 2018-12-03 10:37 | EKG Report ---
Test Performed on : 12/01/2018 01:35:46 AM Test Reason : ED. NO EKG ORDER FOR MUSE Blood Pressure : / mmHG Vent. Rate : 068 BPM Atrial Rate : 068 BPM P-R Int : 150 ms QRS Dur : 098 ms QT Int : 402 ms P-R-T Axes : 041 -57 031 degrees QTc Int : 427 ms Normal sinus rhythm. Low voltage QRS Incomplete right bundle branch block Left anterior fascicular block Cannot rule out Anterior infarct (cited on or before 22-NOV-2018) Abnormal ECG When compared with ECG of 22-NOV-2018 07:32, aberrant conduction. is no longer present Unconfirmed Result
== END 2018-12-01 13:02 | disposition short-term general hospital (02) | DRG 534 ==
LOC: SUPCPDRO → ED 21:54 → 4N 12-01 01:33 → SUATTDRO 12-01 01:33
PROVIDERS: ATTEND Internal Medicine
CPT/HCPCS: 71010; 71045; 73562; 80048; 85025; 85610; 85730; 93005; 93970; 94640; 94761; 94799; 96374; 96375; 96376; 99285; A9270; J1170; J2405